=== PATIENT | male | born 1950 ===

== ENCOUNTER 2025-03-14 08:41 | Day surgery (SDC) | payer OTHER ==
[2025-03-14] MEDS ORDERED: DIPHENHYDRAMINE HCL 50 MG/ML VIAL 1ML IV ONE ×2 (16:15)
[2025-03-14] MEDS ORDERED: fentaNYL CITRATE 50 MCG/ML AMPUL IV PUSH ONE (16:15)
[2025-03-14] MEDS ORDERED: MIDAZOLAM HCL 2 MG/2 ML VIAL IV ONE (18:15)
== END 2025-03-14 17:15 | disposition home or self-care (01) ==
LOC: AMB-ENDOS 08:41
PROVIDERS: ATTEND Internal Medicine
DX: K63.5 Polyp of colon (principal); K57.30 Diverticulosis of large intestine without perforation or abscess without bleeding; D12.2 Benign neoplasm of ascending colon; Z86.0101 Personal history of adenomatous and serrated colon polyps